=== PATIENT | female | born 1965 | race Two or more races ===

== ENCOUNTER 2017-05-27 08:34 | Outpatient (CLI) | payer OTHER | END 2017-05-27 08:47 | disposition home or self-care (01) | LOC: LAB 08:34 | DX: C50.112 Malignant neoplasm of central portion of left female breast (principal); Z90.12 Acquired absence of left breast and nipple; Z92.21 Personal history of antineoplastic chemotherapy; D51.1 Vitamin B12 deficiency anemia due to selective vitamin B12 malabsorption with proteinuria; D51.3 Other dietary vitamin B12 deficiency anemia; I10 Essential (primary) hypertension; E03.8 Other specified hypothyroidism; E78.4 Other hyperlipidemia; E55.9 Vitamin D deficiency, unspecified; E08.65 Diabetes mellitus due to underlying condition with hyperglycemia; E06.3 Autoimmune thyroiditis; D50.8 Other iron deficiency anemias; D51.8 Other vitamin B12 deficiency anemias; R97.0 Elevated carcinoembryonic antigen [CEA]; R97.8 Other abnormal tumor markers; K90.89 Other intestinal malabsorption ==

== ENCOUNTER 2017-08-02 09:49 | Outpatient (CLI) | payer OTHER | END 2017-08-02 10:22 | disposition home or self-care (01) | LOC: LAB 09:49 | DX: Z90.12 Acquired absence of left breast and nipple (principal); Z92.21 Personal history of antineoplastic chemotherapy; D51.1 Vitamin B12 deficiency anemia due to selective vitamin B12 malabsorption with proteinuria; D51.3 Other dietary vitamin B12 deficiency anemia; I10 Essential (primary) hypertension; E03.9 Hypothyroidism, unspecified; E78.5 Hyperlipidemia, unspecified; E55.9 Vitamin D deficiency, unspecified; E08.65 Diabetes mellitus due to underlying condition with hyperglycemia; E06.3 Autoimmune thyroiditis; R97.0 Elevated carcinoembryonic antigen [CEA]; R97.8 Other abnormal tumor markers ==

== ENCOUNTER 2017-09-21 08:38 | Outpatient (CLI) | payer OTHER | END 2017-09-21 08:43 | disposition home or self-care (01) | LOC: LAB 08:38 | DX: E11.65 Type 2 diabetes mellitus with hyperglycemia (principal); E78.00 Pure hypercholesterolemia, unspecified ==

== ENCOUNTER 2017-09-27 08:00 | Outpatient (CLI) | payer OTHER | END 2017-09-27 08:32 | disposition home or self-care (01) | LOC: TOM 08:00 | DX: C50.112 Malignant neoplasm of central portion of left female breast (principal); Z90.12 Acquired absence of left breast and nipple; Z92.21 Personal history of antineoplastic chemotherapy; D51.1 Vitamin B12 deficiency anemia due to selective vitamin B12 malabsorption with proteinuria; D51.3 Other dietary vitamin B12 deficiency anemia; I10 Essential (primary) hypertension; E03.8 Other specified hypothyroidism; E78.4 Other hyperlipidemia; E55.9 Vitamin D deficiency, unspecified; E08.65 Diabetes mellitus due to underlying condition with hyperglycemia; E06.3 Autoimmune thyroiditis ==

== ENCOUNTER 2018-07-19 08:40 | Outpatient (CLI) | payer OTHER | END 2018-07-19 15:00 | disposition home or self-care (01) | LOC: LAB 08:40 | DX: C50.112 Malignant neoplasm of central portion of left female breast (principal); D51.1 Vitamin B12 deficiency anemia due to selective vitamin B12 malabsorption with proteinuria; D51.3 Other dietary vitamin B12 deficiency anemia; Z90.12 Acquired absence of left breast and nipple; Z92.21 Personal history of antineoplastic chemotherapy; I10 Essential (primary) hypertension; E03.8 Other specified hypothyroidism; E78.49 Other hyperlipidemia; E55.9 Vitamin D deficiency, unspecified; E08.65 Diabetes mellitus due to underlying condition with hyperglycemia; E06.3 Autoimmune thyroiditis; D50.8 Other iron deficiency anemias; D51.8 Other vitamin B12 deficiency anemias; R97.0 Elevated carcinoembryonic antigen [CEA]; R97.8 Other abnormal tumor markers; E78.00 Pure hypercholesterolemia, unspecified; E11.65 Type 2 diabetes mellitus with hyperglycemia ==

== ENCOUNTER 2018-10-05 08:00 | Outpatient (CLI) | payer OTHER | END 2018-10-05 15:00 | disposition home or self-care (01) | LOC: LAB 08:00 | DX: E03.8 Other specified hypothyroidism (principal); C50.112 Malignant neoplasm of central portion of left female breast; Z90.12 Acquired absence of left breast and nipple; Z92.21 Personal history of antineoplastic chemotherapy; D51.1 Vitamin B12 deficiency anemia due to selective vitamin B12 malabsorption with proteinuria; I10 Essential (primary) hypertension; E78.49 Other hyperlipidemia; E55.9 Vitamin D deficiency, unspecified; E08.65 Diabetes mellitus due to underlying condition with hyperglycemia; E06.3 Autoimmune thyroiditis ==

== ENCOUNTER 2019-02-01 08:41 | Outpatient (CLI) | payer OTHER | END 2019-02-01 15:00 | disposition home or self-care (01) | LOC: LAB 08:41 | DX: C50.112 Malignant neoplasm of central portion of left female breast (principal); Z92.21 Personal history of antineoplastic chemotherapy; D51.1 Vitamin B12 deficiency anemia due to selective vitamin B12 malabsorption with proteinuria; D51.3 Other dietary vitamin B12 deficiency anemia; E03.8 Other specified hypothyroidism; E78.49 Other hyperlipidemia; E55.9 Vitamin D deficiency, unspecified; E06.3 Autoimmune thyroiditis; D50.8 Other iron deficiency anemias; D51.8 Other vitamin B12 deficiency anemias; K90.89 Other intestinal malabsorption; R97.0 Elevated carcinoembryonic antigen [CEA]; R97.8 Other abnormal tumor markers; E11.22 Type 2 diabetes mellitus with diabetic chronic kidney disease; N18.2 Chronic kidney disease, stage 2 (mild); Z90.12 Acquired absence of left breast and nipple ==

== ENCOUNTER 2019-11-13 15:55 | Outpatient (CLI) | payer OTHER | END 2019-11-13 18:00 | disposition home or self-care (01) | LOC: LAB 15:55 | PROVIDERS: ATTEND Radiology Diagnostic Radiology | DX: N20.0 Calculus of kidney (principal) ==

== ENCOUNTER 2019-11-21 08:10 | Outpatient (CLI) | payer OTHER | END 2019-11-21 09:48 | disposition home or self-care (01) | LOC: RAD 08:10 → TOM 08:15 → RAD 09:48 | PROVIDERS: ATTEND Internal Medicine Hematology & Oncology | DX: C50.112 Malignant neoplasm of central portion of left female breast (principal); Z90.12 Acquired absence of left breast and nipple; Z92.21 Personal history of antineoplastic chemotherapy; D51.1 Vitamin B12 deficiency anemia due to selective vitamin B12 malabsorption with proteinuria; D51.3 Other dietary vitamin B12 deficiency anemia; I10 Essential (primary) hypertension; E03.8 Other specified hypothyroidism; E78.49 Other hyperlipidemia; E55.9 Vitamin D deficiency, unspecified; E08.65 Diabetes mellitus due to underlying condition with hyperglycemia; E06.3 Autoimmune thyroiditis ==

== ENCOUNTER → 2019-11-21 12:17 | Outpatient (CLI) | payer OTHER | END | disposition home or self-care (01) | LOC: LAB 12:17 | PROVIDERS: ATTEND Internal Medicine Hematology & Oncology | DX: D50.8 Other iron deficiency anemias (principal); I10 Essential (primary) hypertension; D51.8 Other vitamin B12 deficiency anemias; E55.9 Vitamin D deficiency, unspecified; E03.8 Other specified hypothyroidism; C50.919 Malignant neoplasm of unspecified site of unspecified female breast; R97.8 Other abnormal tumor markers; R97.0 Elevated carcinoembryonic antigen [CEA]; C50.112 Malignant neoplasm of central portion of left female breast; Z90.12 Acquired absence of left breast and nipple; Z92.21 Personal history of antineoplastic chemotherapy; D51.1 Vitamin B12 deficiency anemia due to selective vitamin B12 malabsorption with proteinuria; D51.3 Other dietary vitamin B12 deficiency anemia; E78.49 Other hyperlipidemia; E08.65 Diabetes mellitus due to underlying condition with hyperglycemia; E06.3 Autoimmune thyroiditis ==

== ENCOUNTER → 2020-10-08 08:59 | Outpatient (CLI) | payer OTHER | END | disposition home or self-care (01) | LOC: LAB 08:59 | PROVIDERS: ATTEND Internal Medicine Hematology & Oncology | DX: C50.112 Malignant neoplasm of central portion of left female breast (principal); Z90.12 Acquired absence of left breast and nipple; Z92.21 Personal history of antineoplastic chemotherapy; D51.1 Vitamin B12 deficiency anemia due to selective vitamin B12 malabsorption with proteinuria; D51.3 Other dietary vitamin B12 deficiency anemia; I10 Essential (primary) hypertension ==

== ENCOUNTER → 2021-01-05 08:13 | Outpatient (CLI) | payer OTHER | END | disposition home or self-care (01) | LOC: LAB 08:13 | PROVIDERS: ATTEND Internal Medicine Hematology & Oncology | DX: D50.8 Other iron deficiency anemias (principal); I10 Essential (primary) hypertension; R74.02 Elevation of levels of lactic acid dehydrogenase [LDH]; K76.89 Other specified diseases of liver; C50.919 Malignant neoplasm of unspecified site of unspecified female breast; R97.8 Other abnormal tumor markers; R97.0 Elevated carcinoembryonic antigen [CEA]; C50.112 Malignant neoplasm of central portion of left female breast; Z90.12 Acquired absence of left breast and nipple; Z92.21 Personal history of antineoplastic chemotherapy; D51.1 Vitamin B12 deficiency anemia due to selective vitamin B12 malabsorption with proteinuria; D51.3 Other dietary vitamin B12 deficiency anemia; E03.8 Other specified hypothyroidism; E78.49 Other hyperlipidemia; E55.9 Vitamin D deficiency, unspecified; E06.3 Autoimmune thyroiditis; E11.65 Type 2 diabetes mellitus with hyperglycemia ==

== ENCOUNTER 2021-01-06 07:56 | Outpatient (CLI) | payer OTHER | END 2021-01-06 08:05 | disposition home or self-care (01) | LOC: TOM 07:56 → MAMO-SONO 08:45 → SONOGRAMA 10:00 | PROVIDERS: ATTEND Internal Medicine Hematology & Oncology | DX: C50.112 Malignant neoplasm of central portion of left female breast (principal); Z90.12 Acquired absence of left breast and nipple; Z92.21 Personal history of antineoplastic chemotherapy; D51.1 Vitamin B12 deficiency anemia due to selective vitamin B12 malabsorption with proteinuria; D51.3 Other dietary vitamin B12 deficiency anemia; I10 Essential (primary) hypertension; E03.8 Other specified hypothyroidism; E78.49 Other hyperlipidemia; E55.9 Vitamin D deficiency, unspecified; E08.65 Diabetes mellitus due to underlying condition with hyperglycemia; E06.3 Autoimmune thyroiditis ==

== ENCOUNTER 2021-01-13 11:02 | Outpatient (CLI) | payer OTHER | END 2021-01-13 11:11 | disposition home or self-care (01) | LOC: MAMO-SONO 11:02 | PROVIDERS: ATTEND Internal Medicine Hematology & Oncology | DX: C50.112 Malignant neoplasm of central portion of left female breast (principal); Z90.12 Acquired absence of left breast and nipple; Z92.21 Personal history of antineoplastic chemotherapy; D51.1 Vitamin B12 deficiency anemia due to selective vitamin B12 malabsorption with proteinuria; D51.3 Other dietary vitamin B12 deficiency anemia; I10 Essential (primary) hypertension; E03.8 Other specified hypothyroidism; E78.49 Other hyperlipidemia; E55.9 Vitamin D deficiency, unspecified; E08.65 Diabetes mellitus due to underlying condition with hyperglycemia; E06.3 Autoimmune thyroiditis ==